=== PATIENT | male | born 1980 | race Caucasian/White ===

== ENCOUNTER 2017-04-02 06:41 | Day surgery (SDC) | payer BC ==
[2017-04-01 11:07] LABS: HEMATOCRIT 47.5 % (42.0-54.0); HEMOGLOBIN 16.3 g/dL (13.5-17.5); MCH 29.9 pg (26.0-34.0); MCHC 34.3 g/dL (31.0-37.0); MEAN PLATELET VOLUME 9.9 fL (7.4-10.4); RBC 5.46 10x6/uL (4.20-6.10); RDW 13.4 % (11.5-14.5); WBC 7.5 10x3/uL (4.8-10.8)
[2017-04-01 11:18] LABS: CALC OSMOLALITY 271 mosm/kg (275-300); CALCIUM 9.1 mg/dL (8.5-10.1); CARBON DIOXIDE 27.4 mmol/L (21.0-32.0); CHLORIDE - SERUM 98 mmol/L (98-107); CREATININE - SERUM 1.1 mg/dL (0.6-1.3); GLUCOSE 137 mg/dL (74-106); SODIUM 134 mmol/L (136-145); UREA NITROGEN 19 mg/dL (7-18); eGFR NON AFRICAN AMERICAN 79 mL/min (90-120)
[~2017-04-02 06:41] MED LIST: CYCLOBENZAPRINE10 MG PO; FISH OIL 1,0001 CA1 PO; HYDROCODONE-APA1 TAB PO; PROTONIX40 MG PO; ZESTORETIC 10/11 TAB PO
[2017-04-02 10:25] VITALS: BP 118/77; BMI 33.7
--- NOTE | 2017-04-02 15:43 | NUR ---
1530--IV DC'D. GIOVANNI KING 1540--DISCHARGE INSTRUCTIONS GIVEN, PT VERBALIZES UNDERSTANDING. PT OFF UNIT VIA WC. GIOVANNI KING
--- NOTE | 2017-04-13 09:40 | HP ---
PATIENT: CHAVA CROCKETT JR MEDICAL RECORD: [id number] ACCOUNT: [id number] LOCATION:[facility] : 76 ADMISSION DATE: 04/02/17 HISTORY AND PHYSICAL EXAMINATION ADDENDUM There is a typed history and physical on the chart. The patient's history and physical examination is unchanged from his visit in the office. The risks, possible complications and alternatives to procedure were explained to the patient. He elects to proceed. I saw him in the holding area. I marked the operative site, which is to the left of midline in the posterior neck. It is a rubbery mass that likely represents a lipoma. It has not been inflamed. It has never been infected. It has never drained. 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
--- NOTE | 2017-04-13 09:40 | OP ---
PATIENT NAME: CHAVA CROCKETT JR MEDICAL RECORD: [id number] :76 LOCATION:D.OPS ADMISSION DATE: SURGEON: MANN DEL TORO MD DATE OF OPERATION: 04/02/2017 PREOPERATIVE DIAGNOSIS: Lipoma of the left posterior neck. POSTOPERATIVE DIAGNOSIS: Lipoma of the left posterior neck. PROCEDURE: Excision of lipoma of the left posterior neck. SURGEON: Mann Del Toro MD COPYRIGHT CLERK: None. BLOOD LOSS: 100 cc. ANESTHESIA: General. COMPLICATIONS: None. The risks, possible complications, and alternatives to procedure were explained to the patient. He elects to proceed. At no time during this operation was there any evidence of a nerve injury. Lobulated fatty tissue consistent with a lipoma was extirpated. OPERATIVE COURSE: The patient was conveyed to the operating room electively on 04/02/2017. General anesthesia was induced by the anesthesia staff. The patient was positioned prone. The posterior neck was sterilely prepped and draped. A transverse incision was accomplished over the mass. I dissected down to the lipoma. The lipoma was excised in a piecemeal fashion. Additional surrounding connective tissue was excised in order to prevent the lipoma from recurring. Meticulous hemostasis was achieved with the electrocautery. Elmer was added to the cavity for additional hemostasis. The subdermis was approximated with interrupted 3-0 Vicryls. The skin was approximated with a running intracuticular 4-0 Vicryl. Dermabond was then applied. The patient was then extubated and conveyed to post-anesthesia care unit where he was in stable condition. TRANSINT:[id number] Voice Confirmation ID: [id number] DOCUMENT ID: [id number] MANN DEL TORO MD at 0940 CC: KWASI VALENZUELA MD [id number] DICTATION DATE: 04/02/17 1344 NURSE TRANSITIONAL: 04/02/17 1418 [facility] 04/02/[address] [id number]
== END 2017-04-02 15:40 | disposition home or self-care (01) ==
LOC: D.OPS 06:41 → D.PAN 12:20 → D.OPS 12:45 → D.PAN 12:45 → D.OPS 15:40
PROVIDERS: Anesthesiology
DX: D17.0 Benign lipomatous neoplasm of skin and subcutaneous tissue of head, face and neck (principal); I10 Essential (primary) hypertension; K21.9 Gastro-esophageal reflux disease without esophagitis; Z01.812 Encounter for preprocedural laboratory examination